=== PATIENT | male | born 1950 ===

== ENCOUNTER 2021-05-23 08:30 | Inpatient (IN) | payer OTHER ==
[~2021-05-23] VITALS: Ht 160 cm; Wt 95.3 kg
[2021-05-23] MEDS ORDERED: GLUMETZA500 MG (11:59)
[2021-05-23] MEDS ORDERED: AMLODIPINE-OLM1 EAC2 (11:59)
[2021-05-23] MEDS ORDERED: LANTUS SOL100 UNIT/1 (11:59)
[2021-05-23] MEDS ORDERED: ATORVASTATIN CA10 MG (11:59)
[2021-05-23] MEDS ORDERED: TOPROL XL25 M1 (12:00)
[2021-05-23] MEDS ORDERED: ENALAPRIL M1 MG/1 ML (12:00)
[2021-05-23] MEDS ORDERED: CARVEDILOL ER40 MG (12:00)
[2021-05-23] MEDS ORDERED: LASIX20 MG (12:00)
[2021-05-28] MEDS ORDERED: ST. JOSEPH ASPI81 M2 (13:38)
[2021-05-28] MEDS ORDERED: LOPRESSOR25 MG (13:38)
[2021-05-28] MEDS ORDERED: GLIMEPIRIDE2 M1 (13:38)
[2021-05-28] MEDS ORDERED: METFORMIN HCL500 M4 (13:38)
[2021-05-28] MEDS ORDERED: AMLODIPINE BESY10 MG (13:39)
[2021-05-28] MEDS ORDERED: CARVEDILOL3.125 M1 (13:39)
[2021-05-28] MEDS ORDERED: DICLOFENAC SODI75 MG (13:39)
[2021-05-28] MEDS ORDERED: IRBESARTAN300 MG (13:40)
== END 2021-05-29 23:22 | DRG 470 ==
LOC: O/R 05-27 05:30 → SURH 05-27 08:30 → SURG 05-27 14:15 → SURH 05-27 20:30 → SURG 05-29 23:22
PROVIDERS: ADMIT Orthopaedic Surgery; ATTEND Orthopaedic Surgery
PROC: 0SRD0J9 Replacement of Left Knee Joint with Synthetic Substitute, Cemented, Open Approach (ICD-10-PCS; principal; 2021-05-27 20:30)
DX: M17.12 Unilateral primary osteoarthritis, left knee (principal); I10 Essential (primary) hypertension; E11.9 Type 2 diabetes mellitus without complications